=== PATIENT | male | born 1955 | race Caucasian/White ===

== ENCOUNTER 2025-05-15 16:37 | Emergency (ER) | payer SELFPAY ==
[2025-05-15 16:39] VITALS: BP 125/77; PULSE 74; RESP 16; TEMP 36.6; O2SAT 96; BMI 26.5
--- NOTE | 2025-05-15 17:30 | ED.RN ---
PT CAME TO DESK AND REPORTS HE IS LEAVING. DOESNT WANT TO WAIT;
== END 2025-05-15 17:30 | disposition left against medical advice (07) ==
LOC: ED 18:18
DX: M54.9 Dorsalgia, unspecified (principal)

== ENCOUNTER 2025-05-16 22:46 | Emergency (ER) | payer OTHER, SELFPAY ==
[2025-05-16 22:47] VITALS: BP 125/79; PULSE 75; RESP 14; TEMP 35.9; O2SAT 98; BMI 27.8
--- OUTSIDE RECORDS SUMMARY | 2025-05-17 01:05 | XMS RPT_ITS | CCD ---
Author Organization [facility] Care Team Providers Care Bead Forming Machine Set Up Operator Name Role Phone Provider, Ed Physician Emergency Provider Unavai lable Care Physician, No Primary Primary Care Provider Unavailable Provider, Ed Physician Attending Unavailab le Care Physician, No Primary Primary Care Unava ilable Provider, Ed Physician Attending Unavailab le Care Physician, No Primary Primary Care Unava ilable Vital Signs Date Time Vital Sign Value Performing Clinician Ted kendrick 05-15-2025 16:39-0400 Body height 177.8 cm Ed Provider [facility] 05-15-2025 16:39-0400 Body mass index (BMI) [Ratio] 26.5 kg/m2 Ed Provider [facility] 05-15-2025 16:39-0400 Body temperature 97.8 [degF] Ed Provider [facility] 05-15-2025 16:39-0400 Body weight 83.91 kg Ed Provider [facility] 05-15-2025 16:39-0400 Diastolic blood pressure 77 mm[Hg] Ed Provider [facility] 05-15-2025 16:39-0400 Heart rate 74 /min Ed Provider [facility] 05-15-2025 16:39-0400 Respiratory rate 16 /min Ed Provider [facility] 05-15-2025 16:39-0400 SaO2% (BldA) [Mass fraction] 96 % Ed Provider [facility] 05-15-2025 16:39-0400 Systolic blood pressure 125 mm[Hg] Ed Provider [facility] Encounters Encounter Date Encounter Type Care Provider Facility Start: 05-16-2025 ambulatory Ed Physician Provider F acility:[facility] Start: 05-15-2025 End: 05-15-2025 Emergency department patient visit Ed Provider -Emergency Department Work Phone: Payers Date Payer Category Payer Self-pay Social History Date Type Detail Facility [facility] if [facility] Work Phone: Start: 1955 Sex Assigned At Male W [facility] Evaluation note Note Date & Type Note Facility Evaluation note No assessment information availa ble [facility] Work Phone: Reason for referral (narrative) Note Date & Type Note Facility Reason for referral (narrative) No reason for referral information available [facility] Work Phone: Chief Complaint and Reason for Visit Chief Complaint Admit Date NECK PAIN May 15, 2025 4:37 pm Summary Purpose Family History No Family History Records Found Advance Directives No Advanced Directives Records Found Additional Source Comments Care Teams (unrecognized sec tion and content) Team Status: Active Member Role/Relationship Status Dates No Primary Care Physician Primary Care Provider Active Team Status: Inactive Member Role/Relationship Status Dates Ed Physician Provider Emergency Provider Active Start: May 15, 2025 End: May 15, 2025 No Primary Care Physician Primary Care Provider Active Start: May 15, 2025 End: May 15, 2025 Goals (unrecognized section and content) Goals may be documented in a n alternate section (unrecognized sect ion and content) No Status Records Found INFORMATION SOURCE (unrecogn ized section and content) DATE CREATED AUTHOR 05/17/2025 [facility] FOR RECORDS PERTAINING TO PATIENTS WHO ARE OR HAVE BEEN ENROLLED IN A CHEMICAL DEPENDENCY/SUBSTANCEABUSE PROGRAM, SOME INFORMATION MAY BE OMITTED. This clinical summary was aggregated from multiple sources. Caution should be exercised in using it in the provision of clinical care. This summary normalizes information from multiple sources, and as a consequence, information in this document may materially change the coding, format and clinical context of patient data. In addition, data may be omitted in some cases. CLINICAL DECISIONS SHOULD BE BASED ON THE PRIMARY CLINICAL RECORDS. [facility] [employer] [facility]. provides no warranty or guarantee of the accuracy or completeness of information in this document.
--- OUTSIDE RECORDS SUMMARY | 2025-05-17 01:05 | XMS RPT_ITS | CCD ---
Author Organization [facility] RN PERIOPERATIVE [facility] Care Team Providers Care House Superintendent Name Role Phone Provider, Ed Physician Emergency [...] 16:39-0400 Body height 177.8 cm Ed Provider [facility] 05-15-2025 16:39-0400 Body mass index (BMI) [Ratio] 26.5 kg/m2 Ed Provider [facility] 05-15-2025 16:39-0400 Body temperature 97.8 [degF] Ed Provider [facility] 05-15-2025 16:39-0400 Body weight 83.91 kg Ed Provider [facility] 05-15-2025 16:39-0400 Diastolic blood pressure 77 mm[Hg] Ed Provider [facility] 05-15-2025 16:39-0400 Heart rate 74 /min Ed Provider [facility] 05-15-2025 16:39-0400 Respiratory rate 16 /min Ed Provider [facility] 05-15-2025 16:39-0400 SaO2% (BldA) [Mass fraction] 96 % Ed Provider [facility] 05-15-2025 16:39-0400 Systolic blood pressure 125 mm[Hg] Ed Provider [facility] Encounters Encounter Date Encounter Type Care Provider Facility Start: 05-16-2025 ambulatory Ed Physician Provider F acility:[facility] Start: 05-15-2025 End: 05-15-2025 Emergency department patient visit Ed Provider -Emergency Department Work Phone: Payers Date Payer Category Payer Self-pay Social History Date Type Detail Facility Tobacco smoking stat [facility] Unknown if ever smoked [facility] Work Phone: Start: 1955 Sex Assigned At Male W [place] Evaluation note Note Date & Type Note Facility Evaluation note No assessment information availa ble [facility] Work Phone: Reason for referral (narrative) Note Date & Type Note Facility Reason for referral (narrative) No reason for referral information available [facility] Work Phone: Chief Complaint and Reason [...] section and content) DATE CREATED AUTHOR 05/17/2025 [facility] FOR RECORDS PERTAINING TO PATIENTS WHO [...] BE BASED ON THE PRIMARY CLINICAL RECORDS. [facility] [employer] [facility]. provides no warranty or guarantee of the accuracy or completeness of information in this document.
--- NOTE | 2025-05-17 01:10 | CT_ITS ---
PROCEDURE: SPINE CERVICAL WITHOUT CONTRAS 05/17/2025 REASON FOR EXAM: PAIN TECHNIQUE: SPINE CERVICAL WITHOUT CONTRAS Coronal and Sagittal reconstruction series were provided. One or more dose reduction techniques were used (e.g., Automated exposure control, adjustment of the mA and/or kV according to patient size, use of iterative reconstruction technique. RADIATION DOSE SUMMARY: CTDlvol: 21 mGy DLP: 462 mGycm COMPARISON: No FINDINGS: Scattered cervical spine degeneration. No acute fracture or dislocation. No soft tissue injury. No apical pneumothorax. Multiple small lytic lesions, within the imaged bones, nonspecific. In the correct clinical setting, bone metastatic disease could be present. CT/Spine Cervical without Contras IMPRESSION: No acute cervical spine injury. If there is any clinical concern for bone metastatic disease, recommend nuclear medicine bone scanning. Reading Location: [place] [address]
--- NOTE | 2025-05-17 01:10 | CT_ITS ---
PROCEDURE: SPINE CERVICAL WITHOUT CONTRAS 05/17/2025 REASON FOR EXAM: PAIN TECHNIQUE: SPINE CERVICAL WITHOUT CONTRAS Coronal and Sagittal reconstruction series were provided. One or more dose reduction techniques were used (e.g., Automated exposure control, adjustment of the mA and/or kV according to patient size, use of iterative reconstruction technique. RADIATION DOSE SUMMARY: CTDlvol: 21 mGy DLP: 462 mGycm COMPARISON: No FINDINGS: Scattered cervical spine degeneration. No acute fracture or dislocation. No soft tissue injury. No apical pneumothorax. Multiple small lytic lesions, within the imaged bones, nonspecific. In the correct clinical setting, bone metastatic disease could be present. CT/Spine Cervical without Contras IMPRESSION: No acute cervical spine injury. If there is any clinical concern for bone metastatic disease, recommend nuclear medicine bone scanning. Reading Location: [place] [address]
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
[2025-05-17 01:57] VITALS: BP 144/85; PULSE 58; RESP 20; TEMP 36.6; O2SAT 100
== END 2025-05-17 01:57 | disposition home or self-care (01) ==
PROVIDERS: Emergency Provider Emergency Medicine; Visit Provider Emergency Medicine
DX: M62.830 Muscle spasm of back (principal); M54.2 Cervicalgia; V89.2XXA Person injured in unspecified motor-vehicle accident, traffic, initial encounter
CPT/HCPCS: 72125; 99283